=== PATIENT | female | born 1995 | race Caucasian/White ===

== ENCOUNTER 2016-07-10 11:51 | Emergency (ER) | payer OTHER ==
[~2016-07-10] VITALS: Ht 172.7 cm; Wt 60.0 kg
[2016-07-10 11:52] VITALS: BP 135/83; PULSE 110; RESP 20; TEMP 98.6; O2SAT 99
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
[2016-07-10] MEDS ORDERED: [UNRECOGNIZED DRUG - OTHER] (12:21)
[2016-07-10] MEDS ORDERED: TRI-TAB (12:21)
[2016-07-10] MEDS ORDERED: [UNRECOGNIZED DRUG - OTHER] (12:21)
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
[2016-07-10] MEDS ORDERED: BACL10TA PO (13:08)
[2016-07-10] MEDS ORDERED: IBUP800T23 PO (13:08)
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
[2016-07-10] MEDS ORDERED: VIST25CA PO (13:21)
[2016-07-10] MEDS ORDERED: hydrOXYzine PAMOATE 25 MG CAP PO ONE (13:30)
== END 2016-07-10 14:06 | disposition home or self-care (01) ==
LOC: NEPB 11:51
DX: S16.1XXA Strain of muscle, fascia and tendon at neck level, initial encounter (principal); S09.90XA Unspecified injury of head, initial encounter; S50.11XA Contusion of right forearm, initial encounter; V43.52XA Car driver injured in collision with other type car in traffic accident, initial encounter; Y92.411 Interstate highway as the place of occurrence of the external cause
CPT/HCPCS: 70450; 72125; 73090; 99284; Q0177